=== PATIENT | female | born 1965 ===

== ENCOUNTER 2018-07-10 11:23 | Outpatient (CLI) | payer OTHER | END 2018-07-10 11:24 | disposition home or self-care (01) | LOC: SONOGRAMA 11:23 | DX: R59.0 Localized enlarged lymph nodes (principal) ==

== ENCOUNTER 2022-11-05 10:26 | Outpatient (CLI) | payer OTHER | END 2022-11-05 10:29 | disposition home or self-care (01) | LOC: SONOGRAMA 10:26 | PROVIDERS: ATTEND Pathology Anatomic Pathology & Clinical Pathology | DX: D36.0 Benign neoplasm of lymph nodes (principal); R59.9 Enlarged lymph nodes, unspecified ==